=== PATIENT | male | born 1955 | race African-American/Black ===

== ENCOUNTER 2024-06-22 16:23 | Emergency (ER) | payer MEDICAID, MEDICARE ==
[~2024-06-22] VITALS: Ht 190.5 cm; Wt 90.0 kg
[2024-06-22 16:25] VITALS: O2SAT 98
[2024-06-22] MEDS: SODIUM CHLORIDE 0.9% 1,000 ML IV ONE (16:47)
[2024-06-22] MEDS: DIPHENOXYLATE/ATROPINE 2.5/0.025MG TABLET PO ONE (17:17)
[2024-06-22 17:25] LABS: BASOPHILS % 1.1 % (0.0-2.0); DIFFERENTIAL COMMENT 0; EOSINOPHILS % 1.5 % (0.0-5.0); HEMATOCRIT. 33.7 % (42.0-52.0); HEMOGLOBIN. 11.1 g/dL (14.0-18.0); LYMPHOCYTES % 19.7 % (20.0-50.0); MEAN CORPUSCULAR HEMOGLOBIN 34.9 pg (28.0-32.0); MEAN CORPUSCULAR HGB CONC 32.9 g/dL (31.0-37.0); MEAN CORPUSCULAR VOLUME 105.8 fL (80.0-94.0); MEAN PLATELET VOLUME 8.1 fl (7.4-10.4); MONOCYTES % 10.7 % (2.0-8.0); PLATELET 127 x1000/uL (130-400); RED BLOOD CELL COUNT 3.18 mill/uL (4.7-6.1); RED CELL DISTRIBUTION WIDTH 15.7 % (11.6-14.6); WHITE BLOOD COUNT 5.7 x1000/uL (4.5-11.0)
[2024-06-22 17:32] LABS: CHLORIDE 109 mEq/L (98-107); SODIUM 138 mEq/L (136-145)
[2024-06-22 17:33] LABS: CALCIUM 7.9 mg/dL (8.7-10.4); CARBON DIOXIDE 26 mEq/L (21-32)
[2024-06-22 17:38] LABS: CREATININE 1.2 mg/dL (0.6-1.3); GLUCOSE 112 mg/dL (70-105); UREA NITROGEN BLOOD 11 mg/dL (9-23)
[2024-06-22 17:39] LABS: TROPONIN I HIGH SENSITIVITY 31 ng/L (3.0-53)
[2024-06-22 19:46] LABS: TROPONIN I HIGH SENSITIVITY 123 ng/L (3.0-53)
[2024-06-22 20:30] VITALS: BP 130/60; PULSE 58; RESP 14; TEMP 98.2
== END 2024-06-22 20:52 | disposition home or self-care (01) ==
LOC: ER 16:23
DX: T46.7X1A Poisoning by peripheral vasodilators, accidental (unintentional), initial encounter (principal); I10 Essential (primary) hypertension; Z98.890 Other specified postprocedural states; Z88.2 Allergy status to sulfonamides; Y92.89 Other specified places as the place of occurrence of the external cause
CPT/HCPCS: 99285; 70450; 71045; 80048; 83880; 83605; 85025; 84484; 36415; 93005; J7030